=== PATIENT | female | born 1935 | race Caucasian/White ===

== ENCOUNTER → 2016-10-01 | Outpatient (CLI) | payer MEDICARE, BC ==
[2016-10-01 12:04] LABS: BASOPHILS % (AUTO) 0.1 % (0-2); EOSINOPHILS # (AUTO) 0.1 T/MM3 (0-0.5); EOSINOPHILS % (AUTO) 1.7 % (0-4); LYMPHOCYTES # (AUTO) 0.5 T/MM3 (1-4.8); LYMPHOCYTES % (AUTO) 6.5 % (23-45); MEAN CORPUSCULAR HGB 29.5 UUG (26-34); MEAN CORPUSCULAR HGB CONC(MCHC 32.5 GM/DL (31-37); MEAN CORPUSCULAR VOLUME 90.9 UM3 (80-100); MEAN PLATELET VOLUME 9.3 UM3 (9.4-12.4); MONOCYTES # (AUTO) 0.9 T/MM3 (0-0.8); MONOCYTES % (AUTO) 12.4 % (0-9.0); NEUTROPHILS #(AUTO)-ABSOLUTE 5.7 T/MM3 (1.8-7.7); NEUTROPHILS % (AUTO) 79.3 % (33-66); WBC - WHITE BLOOD COUNT 7.2 T/MM3 (4.5-11.0)
[2016-10-01 12:15] LABS: ANION GAP 10 MEQ/L (5-15); BUN/CREATININE RATIO 32 RATIO (6-26); CALCIUM 9.3 MG/DL (8.4-10.2); CHLORIDE 100 MEQ/L (98-107); CO2 - CARBON DIOXIDE 25 MEQ/L (22-30); CREATININE 0.6 MG/DL (0.7-1.2); GLOMERULAR FILTRATION RATE 96; GLUCOSE 153 MG/DL (65-110); POTASSIUM 3.6 MEQ/L (3.6-5); SODIUM 135 MEQ/L (134-144)
[2016-10-01 12:34] LABS: INFLUENZA A AG SCREEN NEGATIVE (NEGATIVE); INFLUENZA B AG SCREEN POSITIVE (NEGATIVE)
== END ==
LOC: LABNH.APAL 10:12
PROVIDERS: ATTEND Family Medicine
DX: R50.9 Fever, unspecified (principal); R53.1 Weakness
CPT/HCPCS: 36415; 80048; 85025; 87400; P9604

== ENCOUNTER → 2016-12-02 | Outpatient (CLI) | payer MEDICARE, BC ==
[2016-12-02 08:14] LABS: ALBUMIN 4.6 G/DL (3.5-5.0); ALBUMIN/GLOBULIN RATIO 1.8 RATIO (1.1-2.2); ALKALINE PHOSPHATASE 111 U/L (38-126); ALT (SGPT) 60 U/L (9-52); ANION GAP 13 MEQ/L (5-15); AST (SGOT) 28 U/L (14-36); BUN/CREATININE RATIO 21 RATIO (6-26); CALCIUM 10.1 MG/DL (8.4-10.2); CHLORIDE 102 MEQ/L (98-107); CO2 - CARBON DIOXIDE 27 MEQ/L (22-30); CREATININE 0.7 MG/DL (0.7-1.2); GLOMERULAR FILTRATION RATE 81; GLUCOSE 125 MG/DL (65-110); POTASSIUM 4.4 MEQ/L (3.6-5); SODIUM 142 MEQ/L (134-144); TOTAL PROTEIN 7.1 G/DL (6.3-8.2)
[2016-12-02 08:38] LABS: HEMOGLOBIN A1C 6.8 % (6.1-7.9)
[2016-12-03 01:11] LABS: LDL CHOLESTEROL,CALCULATED 79.8 (66-159); RISK FACTOR 3.2 RATIO (0-4.0); VLDL CHOLESTEROL 35.2 MG/DL (0-28)
== END ==
LOC: LABNH.APAL 01:57
DX: E11.9 Type 2 diabetes mellitus without complications (principal); E78.5 Hyperlipidemia, unspecified; I10 Essential (primary) hypertension
CPT/HCPCS: 36415; 80053; 80061; 83036